=== PATIENT | female | born 1980 | race Two or more races ===

== ENCOUNTER 2023-12-13 08:58 | Outpatient (CLI) | payer MEDICARE, MEDICAID ==
[~2023-12-13 08:58] MED LIST: SULF1TAB45 PO
== END 2023-12-13 23:59 | disposition home or self-care (01) ==
LOC: RAD 08:58
PROVIDERS: ATTEND Family Medicine
DX: R94.01 Abnormal electroencephalogram [EEG] (principal); R56.9 Unspecified convulsions
CPT/HCPCS: 95816

== ENCOUNTER 2024-04-03 16:03 | Outpatient (CLI) | payer MEDICARE, MEDICAID | END 2024-04-03 23:59 | disposition home or self-care (01) | LOC: RAD 16:03 | PROVIDERS: ATTEND Student in an Organized Health Care Education/Training Program | DX: M17.0 Bilateral primary osteoarthritis of knee (principal); M77.32 Calcaneal spur, left foot; M77.31 Calcaneal spur, right foot; M25.572 Pain in left ankle and joints of left foot; M25.861 Other specified joint disorders, right knee; M25.862 Other specified joint disorders, left knee; Z96.662 Presence of left artificial ankle joint; Z98.890 Other specified postprocedural states | CPT/HCPCS: 73564; 73610; 73630 ==

== ENCOUNTER 2024-05-14 14:59 | Outpatient (CLI) | payer MEDICARE, MEDICAID | END 2024-05-14 23:59 | disposition home or self-care (01) | LOC: MRI 14:59 | PROVIDERS: ATTEND Student in an Organized Health Care Education/Training Program | DX: S83.511A Sprain of anterior cruciate ligament of right knee, initial encounter (principal); M25.761 Osteophyte, right knee; M25.461 Effusion, right knee; M71.21 Synovial cyst of popliteal space [Baker], right knee; M67.51 Plica syndrome, right knee; M17.11 Unilateral primary osteoarthritis, right knee; M25.561 Pain in right knee; X58.XXXA Exposure to other specified factors, initial encounter; Y93.89 Activity, other specified; Y92.89 Other specified places as the place of occurrence of the external cause; Y99.8 Other external cause status | CPT/HCPCS: 73721 ==

== ENCOUNTER 2024-08-27 14:04 | Outpatient (CLI) | payer MEDICARE, MEDICAID ==
[2024-08-27 14:59] LABS: BASOPHILS % (AUTO) 0.6 % (0-1); EOSINOPHILS # (AUTO) 0.1 X10'3 (0-0.9); EOSINOPHILS % (AUTO) 2.2 % (0-6); HEMATOCRIT 33.2 % (35.0-45.0); HEMOGLOBIN 11.3 g/dl (12.0-16.0); LYMPHOCYTES # (AUTO) 0.9 X10'3 (1.1-4.8); MEAN CORPUSCULAR HEMOGLOBIN 29.2 PG (27.0-31.0); MEAN CORPUSCULAR VOLUME 85.8 FL (78-98); MEAN PLATELET VOLUME 8.7 FL (7.4-10.4); MONOCYTES # (AUTO) 0.2 X10'3 (0-0.9); MONOCYTES % (AUTO) 4.8 % (2-12); NEUTROPHILS # (AUTO) 2.4 X10'3 (1.8-7.7); NEUTROPHILS % (AUTO) 66.4 % (42-75); PLATELET COUNT 138 X10'3 (140-440); RED BLOOD COUNT 3.87 X10'6 (4.20-5.60); RED CELL DISTRIBUTION WIDTH 13.5 % (11.5-14.5); WHITE BLOOD COUNT 3.7 X10'3 (4.5-11.0)
[2024-08-27 15:16] LABS: ALANINE AMINOTRANSFERASE 24 U/L (12-78); ALKALINE PHOSPHATASE 101 IU/L (46-116); ANION GAP 7 (8-16); ASPARTATE AMINO TRANSFERASE 30 U/L (10-37); BILIRUBIN,TOTAL 0.9 MG/DL (0.1-1.0); BLOOD UREA NITROGEN 13 MG/DL (7-18); BUN/CREATININE RATIO 20.6 (10.0-20.0); CALCIUM 9.4 MG/DL (8.5-10.1); CHLORIDE 104 MMOL/L (99-107); CREATININE 0.63 MG/DL (0.40-0.90); GLUCOSE 103 MG/DL (70-104); POTASSIUM 4.1 MMOL/L (3.5-5.1); SODIUM 139 MMOL/L (135-145); TOTAL CARBON DIOXIDE 27.6 MMOL/L (24-32); eGFR > 90 ML/MIN
[2024-08-27 15:26] LABS: THYROID STIMULATING HORMONE 3.26 ulU/ml (0.34-4.50)
== END 2024-08-27 23:59 | disposition home or self-care (01) ==
LOC: LAB 14:04
PROVIDERS: ATTEND Physician Assistant
DX: A04.8 Other specified bacterial intestinal infections (principal); E03.9 Hypothyroidism, unspecified; E28.2 Polycystic ovarian syndrome; D50.9 Iron deficiency anemia, unspecified; E79.89 Other specified disorders of purine and pyrimidine metabolism; R79.89 Other specified abnormal findings of blood chemistry
CPT/HCPCS: 36415; 80053; 82670; 83001; 83002; 84144; 84402; 84403; 84436; 84443; 85025; 87338

== ENCOUNTER 2024-10-29 16:24 | Outpatient (CLI) | payer MEDICARE, MEDICAID ==
--- NOTE | 2024-10-29 19:13 | RADIOLOGY REPORT ---
EXAM: MR MRI LOWER EXTREMITY RIGHT HISTORY: PAIN IN RIGHT KNEE,OTHER CHRONIC PAIN COMPARISON: MR MRI LOWER EXTREMITY RIGHT on DOS: 05/14/24 TECHNIQUE: Multiplanar, multisequence imaging of the right knee was performed without contrast FINDINGS: MEDIAL COMPARTMENT: Macerated complex tearing of the body of the medial meniscus with medial meniscal extrusion. Opposing subchondral edema at the medial weight-bearing compartment. Broad-based full-t hickness cartilage loss at the medial tibial plateau and medial femoral condyle. LATERAL COMPARTMENT: Intact lateral meniscus. Subchondral edema of the lateral lip of the lateral tib ial plateau with marginal spurring. PATELLOFEMORAL COMPARTMENT: Diffuse cartilage thinning of the patellofemoral compartment no significa nt subchondral edema or cystic change. CRUCIATE LIGAMENTS: Intact anterior and posterior cruciate ligaments. MEDIAL SUPPORTING STRUCTURES: Intact medial collateral ligament. LATERAL SUPPORTING STRUCTURES: Intact iliotibial band, lateral capsular ligament, fibular collateral ligament, popliteus, and biceps femoris tendons EXTENSOR MECHANISM: Intact JOINT SPACE/FLUID: Small to medium knee joint effusion. Trace synovitis. Prefemoral fat pad prolifer ation. BONES: No acute fracture, osseous contusion, or aggressive focal osseous lesion. Tricompartmental mar ginal osseous spurring. MUSCLES: Mild muscle edema of the medial and lateral heads of the gastrocnemius. NEUROVASCULAR: Unremarkable OTHER: None IMPRESSION: 1. Complex macerated tearing of the body of the medial meniscus. 2. 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 3. Small knee joint effusion with trace synovitis.
== END 2024-10-29 23:59 | disposition home or self-care (01) ==
LOC: MRI 16:24
PROVIDERS: ATTEND Physician Assistant
DX: S83.241A Other tear of medial meniscus, current injury, right knee, initial encounter (principal); M25.561 Pain in right knee; G89.29 Other chronic pain; M25.461 Effusion, right knee; R60.0 Localized edema; M17.11 Unilateral primary osteoarthritis, right knee; X58.XXXA Exposure to other specified factors, initial encounter; Y93.89 Activity, other specified; Y92.89 Other specified places as the place of occurrence of the external cause; Y99.8 Other external cause status
CPT/HCPCS: 73721